=== PATIENT | male | born 1950 ===

== ENCOUNTER 2017-11-13 14:11 | Emergency (ER) | payer MEDICARE ==
[2017-11-13 14:16] VITALS: RESP 18; O2SAT 97
[2017-11-13] MEDS ORDERED: Sodium Chloride 0.9% 1,000 ML IV ONE (14:59)
[2017-11-13] MEDS ORDERED: Atropine-Diphenoxylate 0.025-2.5 mg Tab PO STA (14:59)
--- NOTE | 2017-11-13 14:59 | C.PDOC ---
History Of Present Illness 67-YEAR-OLD MALE, PRESENTS TO THE EMERGENCY DEPARTMENT WITH COMPLAINTS OF NON- BILIOUS/NON-BLOODY VOMITING AND DIARRHEA SINCE LAST NIGHT. NO FEVER, ABD PAIN EXAM NAD ABD NEG REMAINDER NEG Time Seen by Provider: 11/13/17 14:36 Chief Complaint (Nursing): GI Problem History Per: Patient History/Exam Limitations: no limitations Onset/Duration Of Symptoms: Hrs Current Symptoms Are (Timing): Still Present Severity: Moderate Past Medical History Reviewed: Historical Data, Nursing Documentation, Vital Signs Vital Signs: Last Vital Signs Temp 97.6 F 11/13/17 14:13 Pulse 75 11/13/17 14:13 Resp 18 11/13/17 14:13 BP 103/73 11/13/17 14:13 Pulse Ox 97 11/13/17 15:31 - Medical History PMH: Asthma Denies: Chronic Kidney Disease - [facility] Procedures LAPAROSCOPIC REPAIR UMBILICAL HERNIA W GRAFT OR PROSTHESIS (10/31/13) Family History: States: No Known Family Hx - Social History Hx Tobacco Use: No Hx Alcohol Use: No Hx Substance Use: No - Immunization History Hx Tetanus Toxoid Vaccination: No Hx Influenza Vaccination: Yes Hx Pneumococcal Vaccination: Yes Review Of Systems Except As Marked, All Systems Reviewed And Found Negative. Constitutional: Negative for: Fever Cardiovascular: Negative for: Chest Pain Respiratory: Negative for: Shortness of Breath Gastrointestinal: Positive for: Nausea, Vomiting, Diarrhea. Negative for: Abdominal Pain Physical Exam - Physical Exam Appears: Non-toxic, No Acute Distress Skin: Warm, Dry, No Rash Head: Atraumatic, Normacephalic Eye(s): bilateral: Normal Inspection Nose: Normal Oral Mucosa: Moist Lips: Normal Appearing Neck: Normal ROM Cardiovascular: Rhythm Regular, Murmur Respiratory: Normal Breath Sounds, No Accessory Muscle Use Gastrointestinal/Abdominal: Soft, No Tenderness Extremity: Normal ROM Neurological/Psych: Oriented x3 ED Course And Treatment - Laboratory Results Result Diagrams: 11/13/17 15:19 11/13/17 15:19 O2 Sat by Pulse Oximetry: 97 Pulse Ox Interpretation: Normal Reevaluation Time: 17:19 Reassessment Condition: Improved Disposition Counseled Patient/Family Regarding: Studies Performed, Diagnosis, Need For Followup, Rx Given - Disposition Referrals: YOUR,PMD [Other] Disposition: HOME/ ROUTINE Disposition Time: 17:19 Condition: IMPROVED Prescriptions: Atropine/Diphenoxylate [Lonox 0.025 MG-2.5 MG] 1 tab PO BID PRN #12 tab PRN Reason: Diarrhea Ondansetron [Zofran Odt] 4 mg PO TID PRN #9 odt PRN Reason: Nausea/Vomiting Instructions: Gastroenteritis (ED) Forms: [facility] (Guatemalan) Print Language: TAJIK - Clinical Impression Clinical Impression: Vomiting, Diarrhea - Scribe Statement The provider has reviewed the documentation as recorded by the Scribe (Janes Houston) All medical record entries made by the Scribe were at my direction and personally dictated by me. I have reviewed the chart and agree that the record accurately reflects my personal performance of the history, physical exam, medical decision making, and the department course for this patient. I have also personally directed, reviewed, and agree with the discharge instructions and disposition.
[2017-11-13] MEDS ORDERED: Belladonna-Phenobarbital ONE (15:06)
[2017-11-13] MEDS ORDERED: Sodium Chloride 0.9% 1,000 ML ONE (15:07)
[2017-11-13 15:22] LABS: BASO % 0.4 % (0.0-2.0); EOS # 0.1 K/uL (0.0-0.7); HEMATOCRIT 38.1 % (35.0-51.0); LYMPH # 0.5 K/uL (1.0-4.3); LYMPH % 6.7 % (20.0-40.0); MEAN CORPUSCULAR HEMOGLOBIN 30.3 pg (27.0-31.0); MEAN CORPUSCULAR HGB CONC 34.9 g/dL (33.0-37.0); MEAN PLATELET VOLUME 8.5 fL (7.2-11.7); MONO # 0.4 K/uL (0.0-0.8); MONO % 5.1 % (0.0-10.0); PLATELET COUNT 203 K/uL (130-400); RED CELL DISTRIBUTION WIDTH 13.4 % (11.5-14.5); WHITE BLOOD COUNT 7.3 K/uL (4.8-10.8)
[2017-11-13] MEDS ORDERED: Atropine-Diphenoxylate 0.025-2.5 mg Tab ONE (15:22)
[2017-11-13 15:45] LABS: BLOOD UREA NITROGEN 15 mg/dL (9-20); CALCIUM 8.6 mg/dl (8.6-10.4); CARBON DIOXIDE 25 mmol/L (22-30); CHLORIDE 105 mmol/L (98-107); GFR AFRICAN-AMERICAN > 60; GLUCOSE,RANDOM 108 mg/dL (75-110); POTASSIUM 4.1 mmol/L (3.6-5.2); SODIUM 135 mmol/L (132-148)
[2017-11-13 15:59] LABS: EOSINOPHIL 1 % (0-4); NEUTROPHIL 92 % (50-75); TOTAL CELLS COUNTED 100
[2017-11-13 17:27] VITALS: BP 122/65; PULSE 68; TEMP 98.4
== END 2017-11-13 17:36 | disposition home or self-care (01) ==
LOC: C.ER 14:11
DX: R11.10 Vomiting, unspecified (principal); R19.7 Diarrhea, unspecified
CPT/HCPCS: 80048; 85025; 96361; 96372; 96374; 99284; J0500; J2405; J7040

== ENCOUNTER → 2018-06-13 15:52 | Emergency (ER) | payer MEDICARE, MEDICAID | END | disposition left against medical advice (07) | LOC: C.ER 15:52 | DX: Z02.89 Encounter for other administrative examinations (principal); H57.8 Other specified disorders of eye and adnexa ==